=== PATIENT | female | born 2000 | race Hispanic/Latino ===

== ENCOUNTER 2025-07-13 17:36 | Emergency (ER) | payer BC, SELFPAY ==
--- OUTSIDE RECORDS SUMMARY | 2025-07-13 17:40 | XMS REPORT | Continuity of Care Document ---
Author Name Unknown Address [address] [facility] [address] [place] [address] [address] [facility] Address [address] [facility] [address] [place] [address] Care Team Providers Care Fly Worker Name Role Phone Darren Kaba Primary Care Physician Veronica Perez Attending Clinician [phone] Problems Condition Name Condition Details Condition Category Status Onset Date Resolution Date Last Treatment Date Treating Clinician Comments Source No known active problems No known active problems Disease [facility] Social History Social Habit Start Date Stop Date Quantity Comments Source Sex Assigned At [facility] Smoking Status Start Date Stop Date Source Never smoker [facility] Medications Ordered Medication Name Filled Medication Name Start Date Stop Date Current Medication? Ordering Clinician Indication Dosage Frequency Signature (SIG) Comments Components Source USE DIRECTED 07-09 00:00: 00 Yes Alon Cordero No known medications No Un juliette [facility] Immunizations Ordered Immunization Name Filled Immunization Name Date Status Comments Source meningococcal MCV4P meningococcal MCV4P 00:00:00 Completed Alon Cordero meningococcal MCV4P 2020-06-15 00:00:00 Completed Influenza Virus Vaccine Quad IM 3+ YRS 2016-11-09 00:00:00 Completed [facility] Influenza Virus Vaccine - Whole 2015-07-29 00:00:00 Completed [facility] Influenza Virus Vaccine Quad IM 3+ YRS 2015-07-29 00:00:00 Completed [facility] Influenza Virus Vaccine - Whole 2014-08-06 00:00:00 Completed [facility] HPV 2013-06-05 00:00:00 Completed [facility] HPV 2012-12-11 00:00:00 Completed [facility] HPV 2012-05-21 00:00:00 Completed [facility] Meningococcal Polysaccharide (groups A, C, Y and W-135) conjugate vaccine (MCV4P) 2012-05-21 00:00:00 Completed [facility] TDAP 2012-05-21 00:00:00 Completed [facility] Influenza Virus Vaccine 2011-08-03 00:00:00 Completed [facility] Influenza Virus Vaccine - Whole 2010-08-02 00:00:00 Completed [facility] Varicella (varivax)(chicken pox) 2010-03-14 00:00:00 Completed [facility] HEPATITIS A 2007-06-05 00:00:00 Completed [facility] DTAP 2005-01-17 00:00:00 Completed [facility] MMR 2005-01-17 00:00:00 Completed [facility] Polio (IPV/OPV) 2005-01-17 00:00:00 Completed [facility] DTAP 2002-02-11 00:00:00 Completed [facility] HIB 3 Dose Schedule 2002-02-11 00:00:00 Completed [facility] MMR 2002-02-11 00:00:00 Completed [facility] Polio (IPV/OPV) 2002-02-11 00:00:00 Completed [facility] Varicella (varivax)(chicken pox) 2002-02-11 00:00:00 Completed [facility] Hep B, Adol or Pedi Dosage 2001 00:00:00 Completed [facility] DTAP 2001 00:00:00 Completed [facility] HIB 3 Dose Schedule 2001 00:00:00 Completed [facility] HIB 3 Dose Schedule 2001 00:00:00 Completed [facility] Polio (IPV/OPV) 2001 00:00:00 Completed [facility] DTAP 2001 00:00:00 Completed [facility] HIB 3 Dose Schedule 2001 00:00:00 Completed [facility] Hep B, Adol or Pedi Dosage 2001 00:00:00 Completed [facility] Polio (IPV/OPV) 2001 00:00:00 Completed [facility] DTAP 2001 00:00:00 Completed [facility] Hep B, Adol or Pedi Dosage 2001 00:00:00 Completed [facility] Vital Signs Vital Name Observation Time Observation Value Comments S ource Height Measured 2025-06-25 08:30:00 63.58 inches Alon F Gil Body Temperature 2025-06-25 08:30:00 97.30 degrees Alon F Gil Heart Rate 2025-06-25 08:30:00 58.00 /min Sydnee en F Gil Respiratory Rate 2025-06-25 08:30:00 16.00 /min Alon F Gil BP Systolic 2025-06-25 08:30:00 116 mm[Hg] Step hen F Gil BP Diastolic 2025-06-25 08:30:00 70 mm[Hg] Alec phen F Gil Weight Measured 2025-06-25 08:30:00 196.20 pounds Alon F Gil BP Systolic 2022-06-27 14:28:00 117 mm[Hg] Step hen F Gil BP Diastolic 2022-06-27 14:28:00 72 mm[Hg] Alec phen F Gil Weight Measured 2022-06-27 14:28:00 161.00 pounds Alon F Gil Height Measured 2022-06-27 14:28:00 63.58 inches Alon F Gil Body Temperature 2022-06-27 14:28:00 98.30 degrees Alon F Gil Heart Rate 2022-06-27 14:28:00 60.00 /min Sydnee en F Gil Respiratory Rate 2022-06-27 14:28:00 16.00 /min Alon F Gil BP Systolic 2022-06-14 08:41:00 107 mm[Hg] Step hen F Gil BP Diastolic 2022-06-14 08:41:00 70 mm[Hg] Alec phen F Gil Weight Measured 2022-06-14 08:41:00 162.20 pounds Alon F Gil Height Measured 2022-06-14 08:41:00 63.58 inches Alon F Gil Body Temperature 2022-06-14 08:41:00 97.90 degrees Alon F Gil Heart Rate 2022-06-14 08:41:00 55.00 /min Sydnee en Dat Cordero Respiratory Rate 2022-06-14 08:41:00 18.00 /min Alon Cordero BP Systolic 2019-06-30 13:58:00 106 mm[Hg] Dao Cordero BP Diastolic 2019-06-30 13:58:00 68 mm[Hg] Alec Cordero Weight Measured 2019-06-30 13:58:00 150.40 pounds Alon Cordero Height Measured 2019-06-30 13:58:00 63.58 inches Alon Cordero Body Temperature 2019-06-30 13:58:00 98.50 degrees Alon Cordero Heart Rate 2019-06-30 13:58:00 50.00 /min Sydnee en Dat Cordero Respiratory Rate 2019-06-30 13:58:00 18.00 /min Alon Cordero Plan of Care Planned Activity Planned Date Details Comments Source Goal Plan of Care Note [code = 97207-9] Goal Plan of Care Note [code = 88691-5] Goal Plan of Care Note [code = 36263-9] Goal Plan of Care Note [code = 85884-8] Goal Plan of Care Note [code = 72081-7] Goal Plan of Care Note [code = 75739-6] Encounters Start Date/Time End Date/Time Encounter Type Admission Type Attending [facility] Facility Care Department Encounter ID Source 2025-06-25 08:24:08 2025-06-25 08:24:08 Outpatient [facility] [id number] Alon Cordero 2025-06-25 00:00:00 2025-06-25 00:00:00 Outpatient Visit [facility] [id number] Alon Cordero 2022-06-14 00:00:00 2022-06-14 00:00:00 Outpatient Visit [id number] 2020-06-11 00:00:00 2020-06-11 00:00:00 Telephone Veronica Garcia [facility] [id number] [facility] Notes Date/Time Note Provider Source Alon Ho [facility]
--- NOTE | 2025-07-13 19:04 | RAD REPORT ---
EXAMINATION: US Transvaginal OB CLINICAL INDICATION: Female 25 years old.[facility] MAIN VAGINAL BLEEDING Bed Name: 19 TECHNIQUE: Real-time ultrasonography of the pelvis was performed transvaginally. Color and spectral D oppler evaluation of the ovaries was performed. COMPARISON: No prior exam. FINDINGS: UTERUS AND CERVIX: The uterus measures 7.3 cm in length. The uterus is normal. No masses seen The end ometrium is normal, 0.4 cm in thickness. No gestational sac or pole visualized. RIGHT OVARY: Normal The right ovary measures 2.6 x 1.8 x 1.3 cm. Normal color and spectral Doppler evaluation of the right ovary.. LEFT OVARY: Normal The left ovary measures 3.3 x 2.4 x 1.7 cm. Normal color and spectral Doppler evaluation of the left ovary.. FREE FLUID: Trace free fluid in the cul-de-sac. IMPRESSION: No evidence of intrauterine or extrauterine . Trace free fluid in the cul-de-sac, could be physiologic.
[2025-07-13 19:19] LABS: Urine Microscopic Reflex YN NO UMIC
[2025-07-13 19:45] LABS: Absolute Lymphocytes (CBC) 2.6 K/uL (0.7-4.9); Hematocrit 43.1 % (36.0-45.0); Hemoglobin 14.4 g/dL (12.0-15.0); MCH 29.5 pg (27.0-35.0); MCHC 33.5 g/dL (32.0-36.0); MCV 87.9 fL (80-100); MPV 8.5 fL (7.6-11.3); Nucleated RBC Absolute Count 0.0 (0-0); Nucleated Red Blood Cells % 0.1 % (0-0); RBC Red Blood Cell Count 4.90 M/uL (3.86-4.86); White Blood Count 7.50 thou/uL (4.3-10.9)
[2025-07-13 20:04] LABS: Anion Gap 6.8 mEq/L (5.0-15.0); BUN Blood Urea Nitrogen 10 mg/dL (7-18); Glucose Level 96 mg/dL (74-106); Potassium 3.8 mEq/L (3.5-5.1)
[2025-07-13 20:05] LABS: HCG, Quantitative < 1 mIU/mL (1-3)
--- NOTE | 2025-07-13 20:23 | EDPHYS ---
Physician Documentation [facility] Name: Britney Barakat Age: 25 yrs Sex: Female : 2000 Arrival Date: 07/13/2025 Time: 17:36 Bed 19 Private MD: ED Physician Fabien Frey HPI: 07/13 18:14 This 25 yrs old Female presents to ER via Ambulatory with complaints of dr5 Vaginal Bleeding, + Preg <12wks. 18:14 The patient presents to the emergency department with vaginal bleeding, that is light. dr5 Patient is a 25-year-old female coming in with vaginal bleeding that started yesterday. Patient reports that she has had 2 positive test at home. Patient reports her cramping has alleviated and feeling much better.patient has not had first APPLICATION DEVELOPMENT SPECIALIST appointment yet. APPLICATION DEVELOPMENT SPECIALIST: 17:53 LMP 05/26/2025, Verified, EDC 03/02/2026, Gestational age from LMP: 6 weeks 6 dd2 days 18:14 1, unknown dr5 Historical: - Allergies: 17:53 No Known Allergies; dd2 - PMHx: 17:53 None; dd2 - PSHx: 17:53 Tonsillectomy; dd2 - Immunization history:: Adult Immunizations up to date. - Infectious Disease History:: Denies. - Social history:: Smoking status: Patient denies any tobacco usage or history of. ROS: 18:14 Constitutional: as per hpi dr5 Exam: 18:14 Constitutional: This is a well developed, well nourished patient who is awake, alert, dr5 and in no acute distress. Head/Face: Normocephalic, atraumatic. Eyes: Pupils equal round and reactive to light, extra-ocular motions intact. Lids and lashes normal. Conjunctiva and sclera are non-icteric and not injected. Cornea within normal limits. Periorbital areas with no swelling, redness, or edema. Neck: Trachea midline, no thyromegaly or masses palpated, and no cervical lymphadenopathy. Supple, full range of motion without nuchal rigidity, or vertebral point tenderness. No Meningismus. Chest/axilla: Normal chest wall appearance and motion. Nontender with no deformity. No lesions are appreciated. Cardiovascular: Regular rate and rhythm with a normal S1 and S2. Normal PMI, no JVD. No pulse deficits. Respiratory: Lungs have equal breath sounds bilaterally, clear to auscultation. No rales, rhonchi or wheezes noted. No increased work of breathing, no retractions or nasal flaring. Abdomen/GI: Soft, non-tender, non-distended Back: No spinal tenderness. No costovertebral tenderness. Full range of motion. Skin: Warm, dry with normal turgor. Normal color with no rashes, no lesions, and no evidence of cellulitis. MS/ Extremity: Pulses equal, no cyanosis. Neurovascular intact. Full, normal range of motion. Neuro: Awake and alert, GCS 15, oriented to person, place, time, and situation. Cranial nerves II-XII grossly intact. Motor strength 5/5 in all extremities. Sensory grossly intact. Cerebellar exam normal. Normal gait. Vital Signs: 12:15 BP 112 / 61; Pulse 52; Resp 16; Temp 98.4; Pulse Ox 100% ; me1 17:49 BP 122 / 72; Pulse 52; Resp 16; Temp 98.1; Pulse Ox 100% on R/A; Weight 72.57 kg; dd2 Height 5 ft. 3 in. ; Pain 4/10; 19:30 BP 110 / 82; Pulse 63; Resp 15; Pulse Ox 99% ; me1 17:49 Body Mass Index 28.34 (72.57 kg, 160.02 cm) dd2 17:49 Pain Scale: Adult dd2 MDM: 17:41 Medical Screening Exam initiated dr5 23:08 Data reviewed: vital signs, nurses notes, lab test result(s), Beta HCG: <1 CBC, white dr5 blood cell count, hemoglobin, hematocrit, platelets, electrolytes, sodium, potassium, chloride, serum bicarbonate, BUN, creatinine, serum glucose, urinalysis, radiologic studies, ultrasound. Data reviewed: lab test result(s), T\T\S - RH POSITIVE. Consideration of Admission/Observation Escalation of care including admission/observation considered. Consider escalation if patient found to have ectopic . I considered the following discharge prescriptions or medication management in the emergency department I discussed and recommended Over The Counter medications. I considered the following discharge prescriptions or medication management in the emergency department Pain Medications: At this time, prescription pain medications are not recommended. Care significantly affected by the following Social Determinants of Health: Poor access to healthcare and/or lack of insurance, Poor access to transportation, Problems related to employment. Counseling: I had a detailed discussion with the patient and/or guardian regarding the historical points, exam findings, and any diagnostic results supporting the discharge/admit diagnosis, the presence of at least one elevated blood pressure reading (>120/80) during this emergency department visit, lab results, radiology results, the need for outpatient follow up, for definitive care, a family practitioner, to return to the emergency department if symptoms worsen or persist or if there are any questions or concerns that arise at home. Special discussion: Based on the patient's Hx, exam, and Dx evaluation, there is no indication for emergent surgery or inpatient Tx. It is understood by the patient/guardian that if the Sx's persist or worsen they need to return immediately for re-evaluation. I discussed with the patient/guardian in detail that at this point there is no indication for admission to the hospital. It is understood, however, that if the symptoms persist or worsen the patient needs to return immediately for re-evaluation. Based on the history and exam findings, there is no indication for further emergent testing or inpatient evaluation. I discussed with the patient/guardian the need to see the OB Gyne specialist for further evaluation of the symptoms. ED course: Patient ultrasound and hCG were negative for IUP. Patient reports that she does not have any pain. Will follow-up with primary care doctor as needed. Likely menstrual cycle. All questions answered. All labs and imaging were printed and given to patient take with her to primary care doctor. Strict ER precautions given.. 07/13 17:41 Order name: Abo/rh Typing; Complete Time: 20: [facility] 07/13 17:41 Order name: Basic Metabolic Panel; Complete Time: 20: [facility] 07/13 17:41 Order name: CBC with Diff; Complete Time: 19:50 [facility] 07/13 17:41 Order name: Test, Urine; Complete Time: 19: [facility] 07/13 17:41 Order name: Quantitative Hcg; Complete Time: 20: [facility] 07/13 17:43 Order name: UA Rfx Damaso Cult if indicated; Complete Time: 19: [facility] 07/13 18:26 Order name: US Transvaginal Ob; Complete Time: 19:06 [facility] 07/13 17:41 Order name: IV Saline Lock; Complete Time: 19:52 [facility] 07/13 17:41 Order name: Labs collected and sent; Complete Time: 19:52 dr5 07/13 17:41 Order name: NPO; Complete Time: 19:07 dr5 Administered Medications: No medications were administered Disposition Summary: 07/13/25 20:22 Discharge Ordered Notes: Location: Home dr5 Condition: Stable dr5 Diagnosis - Abnormal uterine and vaginal bleeding, unspecified dr5 Followup: dr5 - With: Emergency Department - When: As needed - Reason: Worsening of condition Followup: dr5 - With: Private Physician - When: 1 - 2 days - Reason: Recheck today's complaints, Continuance of care, Re-evaluation by your physician Discharge Instructions: - Discharge Summary Sheet dr5 - Abnormal Uterine Bleeding dr5 Forms: - Medication Reconciliation Form dr5 - Patient Portal Instructions dr5 - Leadership Thank You Letter dr5 Addendum: 07/16/2025 07:02 Co-signature as Attending Physician, Fabien Frey MD I reviewed the patient's care r n provided by the Advanced Practice Provider and agree with the diagnosis and treatment plan. Signatures: Dispatcher [employer] EDFabien Johnson MD MD rn DAVIS, DIANA, RN RN dd2 Dave Lennon, YEAST SUPERVISOR-C YEAST SUPERVISOR-Cdr5
--- NOTE | 2025-07-13 20:23 | ER ---
Nurse's Notes [facility] Name: Britney Barakat Age: 25 yrs Sex: Female : 2000 Arrival Date: 07/13/2025 Time: 17:36 Bed 19 Private MD: Diagnosis: Abnormal uterine and vaginal bleeding, unspecified Presentation: 07/13 17:49 Chief complaint: Patient states: 3 POSITIVE TESTS AND BEGAN BLEEDING dd2 YESTERDAY, BRIGHT RED AND DARK RED WITH SOME CLOTS WITH CRAMPING. REPORTS LESS BLEEDING TODAY WITH OCCASIONAL CRAMPING. Coronavirus screen: At this time, the client does not indicate any symptoms associated with coronavirus-19. Ebola Screen: No symptoms or risks identified at this time. Initial Sepsis Screen: Does the patient meet any 2 criteria? No. Patient's initial sepsis screen is negative. Does the patient have a suspected source of infection? No. Patient's initial sepsis screen is negative. Risk Assessment: Do you want to hurt yourself or someone else? Patient reports no desire to harm self or others. Onset of symptoms was July 12, 2025. 17:49 Method Of Arrival: Ambulatory dd2 17:49 Acuity: AYAN 3 dd2 Triage Assessment: 17:53 General: Appears in no apparent distress. Behavior is calm, cooperative, appropriate dd2 for age. Pain: Complains of pain in suprapubic area Pain currently is 4 out of 10 on a pain scale. : Reports pain in suprapubic area vaginal bleeding that is bright red, with clots. DECORATION CHECKER: 17:53 LMP 05/26/2025, Verified, EDC 03/02/2026, Gestational age from LMP: 6 weeks 6 dd2 days 18:14 1, unknown dr5 Historical: - Allergies: 17:53 No Known Allergies; dd2 - PMHx: 17:53 None; dd2 - PSHx: 17:53 Tonsillectomy; dd2 - Immunization history:: Adult Immunizations up to date. - Infectious Disease History:: Denies. - Social history:: Smoking status: Patient denies any tobacco usage or history of. Screenin:00 [facility] ED Fall Risk Assessment (Adult) History of falling in the last 3 months, me1 including since admission No falls in past 3 months (0 pts) Confusion or Disorientation No (0 pts) Intoxicated or Sedated No (0 pts) Impaired Gait No (0 pts) Mobility Assist Device Used No (0 pt) Altered Elimination No (0 pt) Score/Fall Risk Level 0 - 2 = Low Risk Maintained a safe environment, Provided non-skid footwear, Hourly rounding (assess needs \T\ fall precautionary measures) done. Abuse screen: Denies threats or abuse. Nutritional screening: No deficits noted. Tuberculosis screening: No symptoms or risk factors identified. Assessment: 17:56 Reassessment: LMP: 05/26, NEXTPLANON REMOVED 06/25, INTERCOURSE 07/01. dd2 18:00 General: Appears in no apparent distress. well groomed, well developed, well nourished, me1 Behavior is calm, cooperative, appropriate for age, Reports 3 POSITIVE TESTS AND BEGAN BLEEDING YESTERDAY, BRIGHT RED AND DARK RED WITH SOME CLOTS WITH CRAMPING. REPORTS LESS BLEEDING TODAY WITH OCCASIONAL CRAMPING. Pain: Complains of pain in suprapubic area Pain does not radiate. Pain currently is 4 out of 10 on a pain scale. Quality of pain is described as crampy, Pain began 1 day ago. Is continuous. Neuro: Level of Consciousness is awake, alert, obeys commands, Oriented to person, place, time, situation, Appropriate for age. Cardiovascular: Patient's skin is warm and dry. Respiratory: Airway is patent Respiratory effort is even, unlabored, Respiratory pattern is regular, symmetrical. GI: No signs and/or symptoms were reported involving the gastrointestinal system. : Reports vaginal bleeding that is 3 POSITIVE TESTS AND BEGAN BLEEDING YESTERDAY, BRIGHT RED AND DARK RED WITH SOME CLOTS WITH CRAMPING. REPORTS LESS BLEEDING TODAY WITH OCCASIONAL CRAMPING. EENT: No signs and/or symptoms were reported regarding the EENT system. Derm: Skin is intact, is healthy with good turgor, Skin is normal. Musculoskeletal: Circulation, motion, and sensation intact. Range of motion: intact in all extremities. Vital Signs: 12:15 BP 112 / 61; Pulse 52; Resp 16; Temp 98.4; Pulse Ox 100% ; me1 17:49 BP 122 / 72; Pulse 52; Resp 16; Temp 98.1; Pulse Ox 100% on R/A; Weight 72.57 kg; dd2 Height 5 ft. 3 in. ; Pain 4/10; 19:30 BP 110 / 82; Pulse 63; Resp 15; Pulse Ox 99% ; me1 17:49 Body Mass Index 28.34 (72.57 kg, 160.02 cm) dd2 17:49 Pain Scale: Adult dd2 ED Course: 17:40 Patient arrived in ED. im 17:40 Dave Lennon FNP-C is [facility]. dr5 17:40 Fabien Frey MD is Attending Physician. dr5 17:53 Triage completed. dd2 17:53 Arm band placed on right wrist. dd2 18:00 Patient has correct armband on for positive identification. Bed in low position. Call me1 light in reach. Side rails up X2. Provided Education on: POC. Verbalized understanding.. Client placed on continuous cardiac and pulse oximetry monitoring. NIBP monitoring applied. Pulse ox on. NIBP on. 18:11 Joya Spencer, RN is Primary Nurse. me1 18:59 US Transvaginal Ob In Process Unspecified. EDGA 19:07 UA Rfx Damaso Cult if indicated Sent. me1 19:07 Test, Urine Sent. me1 19:07 Urine collected: clean catch specimen, clear. me1 19:53 No provider procedures requiring assistance completed. Accessed ,peripheral vein via la1 ultrasound, utilizing static ultrasound technique Blood collected. using 20G Nexia IV catheter ,sterile technique, Clean \T\ dry. Dressing intact. Good blood return. Flushes easily. started by AMARI Potter. 20:37 IV discontinued, intact, bleeding controlled, No redness/swelling at site. Pressure la1 dressing applied. Administered Medications: No medications were administered Medication: 18:00 VIS not applicable for this client. me1 Outcome: 20:22 Discharge ordered by . dr5 20:37 Discharged to home ambulatory, me1 20:37 Condition: stable 20:37 Discharge instructions given to patient, Instructed on discharge instructions, follow up and referral plans. Demonstrated understanding of instructions, follow-up care, 20:37 Patient left the ED. me1 Signatures: Dispatcher [employer] EDGA Juani Leyva Joya Spencer RN RN me1 ALEXANDRA DAVIS RN RN dd2 Dave Lennon FNP-C [employer]-Cdr5 Corrections: (The following items were deleted from the chart) 17:55 17:49 Chief complaint: Patient states: APPROX 112 WEEKS AND BEGAN BLEEDING dd2 YESTERDAY, BRIGHT RED AND DARK RED WITH SOME CLOTS WITH CRAMPING. REPORTS LESS BLEEDING TODAY WITH OCCASIONAL CRAMPING. dd2 19:54 17:49 Chief complaint: Patient states: 3 POSITIVE TESTS AND BEGAN BLEEDING me1 YESTERDAY, BRIGHT RED AND DARK RED WITH SOME CLOTS WITH CRAMPING. REPORTS LESS BLEEDING TODAY WITH OCCASIONAL CRAMPING. dd2
[2025-07-13 20:45] VITALS: TEMP 98.1
[2025-07-13 20:47] VITALS: BP 110/82; O2SAT 99
== END 2025-07-13 20:37 | disposition home or self-care (01) ==
LOC: ER 17:36
DX: N93.9 Abnormal uterine and vaginal bleeding, unspecified (principal)
CPT/HCPCS: 36415; 76817; 80048; 81003; 81025; 84702; 85025; 86900; 86901; 99284